=== PATIENT | female | born 1950 | race Caucasian/White ===

== ENCOUNTER 2018-02-16 09:36 | Outpatient (CLI) | payer OTHER ==
[~2018-02-16 09:36] MED LIST: SIMVASTATIN20 MG PO
== END 2018-02-16 10:11 | disposition home or self-care (01) ==
LOC: MAMO-SONO 09:36
DX: Z12.31 Encounter for screening mammogram for malignant neoplasm of breast (principal); Z87.898 Personal history of other specified conditions; E04.1 Nontoxic single thyroid nodule; R91.8 Other nonspecific abnormal finding of lung field

== ENCOUNTER 2018-11-11 10:14 | Outpatient (CLI) | payer OTHER | END 2018-11-11 10:17 | disposition home or self-care (01) | LOC: SONOGRAMA 10:14 → MAMO-SONO 10:15 → SONOGRAMA 10:17 | DX: R10.2 Pelvic and perineal pain (principal); Z01.419 Encounter for gynecological examination (general) (routine) without abnormal findings ==

== ENCOUNTER → 2018-11-29 | Outpatient (CLI) | payer OTHER | END | disposition home or self-care (01) | LOC: NUCLEAR 09:32 | DX: M81.0 Age-related osteoporosis without current pathological fracture (principal) ==

== ENCOUNTER 2019-07-08 07:56 | Outpatient (CLI) | payer OTHER | END 2019-07-08 08:25 | disposition home or self-care (01) | LOC: LAB 07:56 | DX: I10 Essential (primary) hypertension (principal); I70.0 Atherosclerosis of aorta ==

== ENCOUNTER 2019-07-13 08:00 | Outpatient (CLI) | payer OTHER | END 2019-07-13 08:05 | disposition home or self-care (01) | LOC: TOM 08:00 | DX: R10.84 Generalized abdominal pain (principal) | CPT/HCPCS: 74178; Q9965 ==